=== PATIENT | female | born 1960 | race Hispanic/Latino ===

== ENCOUNTER → 2021-10-22 | Outpatient (CLI) | payer OTHER ==
[~2021-10-22] MED LIST: CETI10TA57 PO; LOSA25TA41 PO; MONT-39 PO; ROSU20TA31 PO
== END | disposition home or self-care (01) ==
LOC: ICE 14:22
PROVIDERS: ATTEND Family Medicine
DX: Z13.6 Encounter for screening for cardiovascular disorders (principal)
CPT/HCPCS: 75571